=== PATIENT | male | born 1970 | race Caucasian/White ===

== ENCOUNTER 2024-07-29 11:10 | Emergency (ER) | payer MEDICAID ==
[~2024-07-29] VITALS: Ht 185.4 cm; Wt 79.8 kg
[2024-07-29] MEDS ORDERED: SULF1TAB49 PO (12:38)
[2024-07-29] MEDS: LIDOcaine 1% W/epiNEPHrine 1:100,000 20ml vial SQ ONE (12:42)
[2024-07-29 13:03] VITALS: BP 132/70; PULSE 88; RESP 16; TEMP 98.9; O2SAT 98
== END 2024-07-29 13:06 | disposition home or self-care (01) ==
LOC: ER 11:11
DX: L02.31 Cutaneous abscess of buttock (principal)
CPT/HCPCS: 10060; 99283; A6266; A6258; A6449

== ENCOUNTER 2024-08-01 10:39 | Emergency (ER) | payer MEDICAID ==
[~2024-08-01] VITALS: Ht 185.4 cm; Wt 78.5 kg
[~2024-08-01 10:39] MED LIST: SULF1TAB49 PO
[2024-08-01 10:40] VITALS: BP 138/84; PULSE 67; RESP 16; TEMP 98; O2SAT 95
[2024-08-01] MEDS ORDERED: CLIN300C71 PO (13:39)
== END 2024-08-01 13:49 | disposition home or self-care (01) ==
LOC: ER 10:39
DX: L02.32 Furuncle of buttock (principal); L02.33 Carbuncle of buttock; Z79.899 Other long term (current) drug therapy
CPT/HCPCS: 99283; A6449

== ENCOUNTER 2025-01-05 20:05 | Emergency (ER) | payer MEDICAID ==
[~2025-01-05] VITALS: Ht 185.4 cm; Wt 61.2 kg
[2025-01-05 20:16] VITALS: BP 104/78; PULSE 64; RESP 16; TEMP 98.4; O2SAT 97
[2025-01-05 21:19] LABS: MEAN PLATELET VOLUME 7.6 FL (7.4-10.4); RED CELL DISTRIBUTION WIDTH 13.4 % (11.5-14.5)
[2025-01-05 21:27] LABS: CREATININE 2.63 MG/DL (0.60-1.10); TOTAL CARBON DIOXIDE 26.0 MMOL/L (24-32); eCRCL 28 ML/MIN; eGFR 26 ML/MIN
[2025-01-05] MEDS ORDERED: CEPH-585 PO (21:28)
[2025-01-05] MEDS ORDERED: SULF1TAB45 PO (21:28)
--- NOTE | 2025-01-05 21:29 | Physician Documentation ---
History of Present Illness ~ Chief Complaint: Wound Stated Complaint: POSS KNEE INFECTION Time Seen by MD: 20:44 HPI 54-year-old male presents with a complaint of a left knee pain for last 4 days. States it started as a pimple and has persisted. He reports there is some dr nolasco. Denies any injury Day of Onset of Wound: Jan 05, 2025 Tetanus within 5 years?: Yes Medication Reconciliation Allergies: Coded Allergies: No Known Allergies (Unverified , 07/29/24) Review of Systems All Other Systems at this time: Reviewed and Negative ROS As stated above in the HPI, otherwise all systems are reviewed and negative. Physical Exam Vital Signs: Temperature: 98.4, Source: Temporal, Heart Rate: 64, Respiratory Rate: 16, BP: 104/78, Pulse Oximetry: 97, Weight: 61.200 Oxygen Flow Rate: 0 Physical Exam General: Alert, no apparent distress. HEENT: PERRL, EOMI, no injection, moist mucous membranes. Extremities: Normal range of motion, knee notable erythema on the lateral aspect of the patella with notable with drainage Neurologic: Oriented x4. Psychiatric: Normal mood and affect. Skin: Normal color, warm and dry. No edema, no ecchymosis. Progress Results/Orders Results/Orders Orders - TOLU TIAN NP BMP (01/05/25 21:00) LA (01/05/25 21:00) Completed Orders - TOLU TIAN NP Cbc/Diff (01/05/25 21:00) Vital Signs 01/05/25 20:16 Temp 98.4 Pulse 64 Resp 16 B/P (MAP) 104/78 Pulse Ox 97 O2 Flow Rate 0 Laboratory Tests Test 01/05/25 20:58 White Blood Count 14.8 H Red Blood Count 5.18 Hemoglobin 15.9 Hematocrit 45.2 Mean Corpuscular Volume 87.3 Mean Corpuscular Hemoglobin 30.8 Mean Corpuscular Hemoglobin Concent 35.2 Red Cell Distribution Width 13.4 Platelet Count 302 Mean Platelet Volume 7.6 Neutrophils (%) (Auto) 64.2 Lymphocytes (%) (Auto) 24.7 Monocytes (%) (Auto) 9.7 Eosinophils (%) (Auto) 0.5 Basophils (%) (Auto) 0.9 Neutrophils # (Auto) 9.5 H Lymphocytes # (Auto) 3.6 Monocytes # (Auto) 1.4 H Eosinophils # (Auto) 0.1 Basophils # (Auto) 0.1 CBC Comment Chemistry Comments Medical Decision Making Findings Treating patient for a draining abscess. There was no evidence of fluctuance requiring I and D. needs criteria for outpatient there Differential Dx:Considerations: Include: Abscess, Cellulitis, Dressing change, Healing wound, Other Departure Disposition: HOME / SELF CARE / HOMELESS Impression: Primary Impression: Wound cellulitis Condition: Stable Discharge Instructions: Skin Abscess, Abrasion Referrals: NO PRIMARY CARE PROVIDER (PCP) Prescriptions Cephalexin*Monohydrate* (Keflex*) 500 Mg Capsule 1 CAP PO QID, #40 CAP Prov: TOLU TIAN [employer] SUPERINTENDENT 01/05/25 Sulfamethoxazole/Trimethoprim (Septra Ds Tab) 800 Mg/160 Mg Tablet 1 TAB PO Q12H for 10 Days, #20 TAB Prov: TOLU TIAN [employer] SUPERINTENDENT 01/05/25 Education Educated: Patient Educated regarding: diagnosis Signature Scribe Signature: d Attestation: Scribed for Tolu Tian Solar Designer/Installer by Tolu Ortiz NP . 01/05/25 21:28 TOLU TIAN NP Jan 05, 2025 21:29
[2025-01-05] MEDS: sulfamethoxazole/trimethoprim DS (800/160mg) tablet PO ONE (22:11)
== END 2025-01-05 22:20 | disposition home or self-care (01) ==
LOC: ER 20:07
DX: L03.116 Cellulitis of left lower limb (principal)
CPT/HCPCS: 36415; 80048; 83605; 85025; 99284